=== PATIENT | female | born 1970 | race African-American/Black ===

== ENCOUNTER 2021-11-19 07:09 | Emergency (ER) | payer MEDICAID ==
[~2021-11-19] VITALS: Ht 175.3 cm; Wt 125.0 kg
[2021-11-19] MEDS ORDERED: IBUPROFEN 600 MG TABLET PO ONE (08:15)
[2021-11-19] MEDS: DEXAMETHASONE SOD PHOS 4 MG/ML 5 ML VIAL IM ONE ×2 (08:27→08:39)
[2021-11-19 09:25] VITALS: BP 150/69
== END 2021-11-19 09:44 | disposition home or self-care (01) ==
LOC: EMS 07:12
DX: J02.8 Acute pharyngitis due to other specified organisms (principal); O92.6 Galactorrhea; F17.210 Nicotine dependence, cigarettes, uncomplicated; I10 Essential (primary) hypertension; G40.909 Epilepsy, unspecified, not intractable, without status epilepticus; Z90.710 Acquired absence of both cervix and uterus
CPT/HCPCS: 99283; 87430; J1100